=== PATIENT | female | born 2000 | race Caucasian/White ===

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

== ENCOUNTER → 2021-03-12 | Outpatient (REF) ==
[~2021-03-12] MED LIST changes: -AMIT25TA PO; +AMIT25TA17 PO; -RIZA5TAB; +RIZA5TAB2
== END ==
LOC: M EMP 12:41
PROVIDERS: ATTEND Family Medicine
DX: Z11.52 Encounter for screening for COVID-19 (principal)

== ENCOUNTER → 2021-03-16 | Outpatient (REF) | LOC: M LABSMTC 11:23 | PROVIDERS: ATTEND Pediatrics | DX: Z20.822 Contact with and (suspected) exposure to COVID-19 (principal) ==

== ENCOUNTER → 2021-04-13 | Outpatient (REF) ==
[2021-04-13 15:53] LABS: RSV AMPLIFICATION NEGATIVE (NEGATIVE)
== END ==
LOC: M EMP 14:01
PROVIDERS: ATTEND Family Medicine
DX: Z20.822 Contact with and (suspected) exposure to COVID-19 (principal)

== ENCOUNTER → 2021-04-14 | Outpatient (CLI) | payer OTHER ==
[2021-04-14 14:12] LABS: BASO # 0.1 10^3/uL (0.0-0.2); EOS # 0.2 10^3/uL (0.0-0.5); EOS % 3.6 % (0.0-3.0); HEMATOCRIT 40.5 % (36.0-47.0); HEMOGLOBIN 12.8 g/dl (12.0-15.5); LYMPH # 1.7 10^3/uL (1.5-5.0); LYMPH % 29.3 % (24.0-44.0); MEAN CORPUSCULAR HEMOGLOBIN 28.8 pg (27.0-33.0); MEAN CORPUSCULAR HGB CONC 31.6 g/dl (32.0-36.5); MEAN CORPUSCULAR VOLUME 91.2 fl (80.0-96.0); MONO # 0.4 10^3/uL (0.0-0.8); MONO % 6.5 % (2.0-8.0); NEUTROPHILS # 3.4 10^3/uL (1.5-8.5); NEUTROPHILS % 59.1 % (36.0-66.0); PLATELET COUNT, AUTOMATED 295 10^3/uL (150-450); RED BLOOD COUNT 4.44 10^6/uL (4.00-5.40); WHITE BLOOD COUNT 5.8 10^3/uL (4.0-10.0)
[2021-04-14 14:53] LABS: ALT/SGPT 21 U/L (12-78); BILIRUBIN,TOTAL 0.2 MG/DL (0.2-1.0); BLOOD UREA NITROGEN 9 MG/DL (7-18); CALCIUM LEVEL 8.9 MG/DL (8.5-10.1); CARBON DIOXIDE LEVEL 25 MEQ/L (21-32); CHLORIDE LEVEL 107 MEQ/L (98-107); CHOLESTEROL LEVEL 238 MG/DL (<200); CHOLESTEROL RISK RATIO 5.534 (<5); CREATININE FOR GFR 0.73 MG/DL (0.55-1.30); FREE T3 3.1 PG/ML (2.9-4.5); FREE T4 1.06 NG/DL (0.78-1.33); GLUCOSE, FASTING 89 MG/DL (70-100); HDL CHOLESTEROL 43 MG/DL (>40); LDL CHOLESTEROL 180 MG/DL (<100); NON-HDL-C 195 MG/DL; POTASSIUM SERUM 3.9 MEQ/L (3.5-5.1); SODIUM LEVEL 138 MEQ/L (136-145); THYROID PEROXIDASE ANTIBODY 515.9 U/ML (<60.0); TOTAL 25(OH) VITAMIN D 26.6 NG/ML (30.0-100.0); TOTAL PROTEIN 7.6 GM/DL (6.4-8.2); TRIGLYCERIDES LEVEL 75 MG/DL (<150)
[2021-04-14 15:22] LABS: HEMOGLOBIN A1c 5.3 %
== END ==
LOC: M LAB 13:21
PROVIDERS: ATTEND Nurse Practitioner Family
DX: Z00.01 Encounter for general adult medical examination with abnormal findings (principal)

== ENCOUNTER → 2021-04-22 | Outpatient (REF) ==
[2021-04-22 12:28] LABS: RSV AMPLIFICATION NEGATIVE (NEGATIVE)
== END ==
LOC: M EMP 08:05
PROVIDERS: ATTEND Family Medicine
DX: Z20.822 Contact with and (suspected) exposure to COVID-19 (principal)

== ENCOUNTER → 2022-01-04 | Outpatient (CLI) | payer OTHER ==
[~2022-01-04] MED LIST changes: -CLAR5TAB PO; +DESL5TAB28 PO
== END ==
LOC: M RAD 08:33
PROVIDERS: ATTEND Nurse Practitioner Family
DX: R10.11 Right upper quadrant pain (principal); R19.7 Diarrhea, unspecified
CPT/HCPCS: 78226; A9537

== ENCOUNTER → 2023-09-16 | Outpatient (REF) | payer OTHER, MEDICAID ==
[~2023-09-16] MED LIST changes: -AMIT25TA17 PO; +AMIT25TA19 PO; +MONT-5 PO; -SING10TA32 PO
[2023-09-16 18:01] LABS: APPEARANCE, URINE HAZY (CLEAR); BACTERIA, URINE AUTO NEGATIVE (NEGATIVE); BILIRUBIN, URINE AUTO NEGATIVE (NEGATIVE); BLOOD, URINE BLOOD NEGATIVE (NEGATIVE); COLOR, URINE YELLOW (YELLOW); GLUCOSE, URINE (UA) AUTO NEGATIVE (NEGATIVE); KETONE, URINE AUTO NEGATIVE (NEGATIVE); LEUKOCYTE ESTERASE, URINE AUTO NEGATIVE (NEGATIVE); MUCUS, URINE SMALL (NEGATIVE); NITRITE, URINE AUTO NEGATIVE (NEGATIVE); PROTEIN, URINE AUTO NEGATIVE (NEGATIVE); RBC, URINE AUTO 1 /HPF (0-3); SPECIFIC GRAVITY URINE AUTO 1.015 (1.002-1.035); SQUAMOUS EPITHELIAL CELL UR AU 5 /HPF (0-6); UROBILINOGEN, URINE AUTO 0.2 mg/dL (0.0-2.0); WBC, URINE AUTO 2 /HPF (0-3)
== END ==
LOC: M LAB REF 16:24
PROVIDERS: ATTEND Physician Assistant Medical
DX: N39.0 Urinary tract infection, site not specified (principal)

== ENCOUNTER 2024-04-21 23:27 | Emergency (ER) | payer OTHER ==
[~2024-04-21] VITALS: Ht 154.9 cm; Wt 68.9 kg
[~2024-04-21 23:27] MED LIST changes: -AUGM0.05; +AUGM0.0511
[2024-04-22] MEDS: ACETAMINOPHEN 500 MG TAB PO ONE (01:14)
[2024-04-22 01:43] LABS: BASO # 0.1 10^3/uL (0.0-0.2); BASO % 1.4 % (0.0-1.0); EOS # 0.3 10^3/uL (0.0-0.5); HEMATOCRIT 35.6 % (36.0-47.0); HEMOGLOBIN 11.8 g/dl (12.0-15.5); LYMPH # 1.7 10^3/uL (1.5-5.0); LYMPH % 30.2 % (24.0-44.0); MEAN CORPUSCULAR HEMOGLOBIN 28.6 pg (27.0-33.0); MEAN CORPUSCULAR HGB CONC 33.1 g/dl (32.0-36.5); MEAN CORPUSCULAR VOLUME 86.2 fl (80.0-96.0); MONO # 0.4 10^3/uL (0.0-0.8); MONO % 6.4 % (2.0-8.0); NEUTROPHILS # 3.2 10^3/uL (1.5-8.5); NEUTROPHILS % 55.8 % (36.0-66.0); PLATELET COUNT, AUTOMATED 327 10^3/uL (150-450); RED BLOOD COUNT 4.13 10^6/uL (4.00-5.40); WHITE BLOOD COUNT 5.7 10^3/uL (4.0-10.0)
[2024-04-22] MEDS ORDERED: ISOVUE-370 76% 100ML VIAL As Ordered ONE (01:47)
[2024-04-22] MEDS ORDERED: ERYT5OIN25 OS (03:18)
[2024-04-22] MEDS: ERYTHROMYCIN OPHTH OINT OS ONE (03:20)
[2024-04-22 03:23] VITALS: BP 137/74; TEMP 98.2; O2SAT 99
== END 2024-04-22 03:37 | disposition home or self-care (01) ==
LOC: M ED 23:27
DX: H10.32 Unspecified acute conjunctivitis, left eye (principal); J45.909 Unspecified asthma, uncomplicated; K58.9 Irritable bowel syndrome, unspecified; N13.70 Vesicoureteral-reflux, unspecified; Z79.3 Long term (current) use of hormonal contraceptives; Z79.899 Other long term (current) drug therapy; Z88.8 Allergy status to other drugs, medicaments and biological substances; Z91.011 Allergy to milk products; Z91.040 Latex allergy status
CPT/HCPCS: 36415; 70481; 80047; 85025; 99284; Q9967

== ENCOUNTER 2025-05-23 17:46 | Emergency (ER) | payer OTHER ==
[~2025-05-23] VITALS: Ht 154.9 cm; Wt 89.9 kg
[~2025-05-23 17:46] MED LIST changes: -DESL5TAB28 PO; +DESL5TAB30 PO; +ERYT5OIN25 OS; -PROC5TAB57 PO; +PROC5TAB81 PO
[2025-05-23 17:50] VITALS: BP 172/126; TEMP 97.5; O2SAT 100
[2025-05-23] MEDS ORDERED: ASPI81CH33 PO (18:34)
[2025-05-23] MEDS ORDERED: PRENTAB9 PO (18:34)
[2025-05-23] MEDS ORDERED: DULO1CAP4 PO (18:34)
[2025-05-23] MEDS ORDERED: OMEP10CASR PO (18:34)
[2025-05-23] MEDS ORDERED: LABE100T91 PO (22:40)
== END 2025-05-23 18:11 | disposition admitted as inpatient to this hospital (09) ==
LOC: M ED 17:46
DX: Z53.21 Procedure and treatment not carried out due to patient leaving prior to being seen by health care provider (principal)

== ENCOUNTER 2025-05-23 18:01 | Outpatient (CLI) | payer OTHER ==
[~2025-05-23] VITALS: Ht 154.9 cm; Wt 90.4 kg
[2025-05-23] VITALS (11 sets, daily range): BP systolic 127–174; BP diastolic 79–115
[2025-05-23] MEDS ORDERED: OMEP10CASR PO (18:34)
[2025-05-23] MEDS ORDERED: PRENTAB9 PO (18:34)
[2025-05-23] MEDS ORDERED: ASPI81CH33 PO (18:34)
[2025-05-23] MEDS ORDERED: DULO1CAP4 PO (18:34)
[2025-05-23] MEDS ORDERED: HOME MED LIST COMPLETE! XX SCH (18:35)
[2025-05-23 19:05] LABS: PLATELET COUNT, AUTOMATED 236 10^3/uL (150-450)
[2025-05-23 19:39] LABS: LDH LACTATE DEHYDROGENASE 251 U/L (120-246)
[2025-05-23 19:41] LABS: ALT/SGPT 17 U/L (7.0-40); AST/SGOT 31 U/L (<34); CALCIUM LEVEL 8.5 MG/DL (8.5-10.1); CARBON DIOXIDE LEVEL 24 MMOL/L (20-31); CHLORIDE LEVEL 105 MMOL/L (98-107); CREATININE FOR GFR 0.60 MG/DL (0.55-1.30); GLOMERULAR FILTRATION RATE > 90.0 (>60); POTASSIUM SERUM 3.8 MMOL/L (3.5-5.1); SODIUM LEVEL 137 MMOL/L (136-145)
[2025-05-23] MEDS: LABETALOL 100 MG/20 ML VIAL IV STA (19:58)
[2025-05-23 20:11] LABS: TOTAL PROTEIN,RANDOM URINE 12.6 MG/DL (0.0-14.0)
[2025-05-23] MEDS: LABETALOL 100 MG TAB PO ONE (20:56)
[2025-05-23] MEDS ORDERED: LABE100T91 PO (22:40)
== END 2025-05-23 22:23 | disposition home or self-care (01) ==
LOC: M LDO 18:01
PROVIDERS: ATTEND Obstetrics & Gynecology
DX: O16.3 Unspecified maternal hypertension, third trimester (principal); O99.513 Diseases of the respiratory system complicating pregnancy, third trimester; O99.343 Other mental disorders complicating pregnancy, third trimester; O26.833 Pregnancy related renal disease, third trimester; J45.909 Unspecified asthma, uncomplicated; F31.9 Bipolar disorder, unspecified; F41.8 Other specified anxiety disorders; Z3A.37 37 weeks gestation of pregnancy
CPT/HCPCS: 59025; 80053; 82570; 83615; 84156; 84550; 85027; G0463; J1920

== ENCOUNTER 2025-06-03 18:43 | Inpatient (IN) | payer OTHER ==
[2025-06-03] VITALS (12 sets, daily range): BP systolic 128–174; BP diastolic 76–115
[~2025-06-03] VITALS: Ht 154.9 cm; Wt 90.9 kg
[~2025-06-03 18:43] MED LIST changes: +ASPI81CH33 PO; +DULO1CAP4 PO; +LABE100T91 PO; +OMEP10CASR PO; +PRENTAB9 PO
[2025-06-03] MEDS ORDERED: HOME MED LIST COMPLETE! XX SCH (19:00)
[2025-06-03] MEDS ORDERED: LIDOCAINE 1% MDV 20 ML VIAL INFIL PRN (19:45)
[2025-06-03] MEDS ORDERED: OXYTOCIN INJ 10UNITS/ML 1ML VIAL IM PRN (19:45)
[2025-06-03] MEDS ORDERED: TRANEXAMIC ACID INJection 1,000 MG in NS 100 ML IV PRN (19:45)
[2025-06-03] MEDS ORDERED: OXYTOCIN DRIP 30 UNITS in IV 1 EA IV PRN (19:45)
[2025-06-03 19:57] LABS: TOTAL PROTEIN,RANDOM URINE 19.4 MG/DL (0.0-14.0)
[2025-06-03] MEDS: NIFEdipine 10 MG CAP PO STA (19:58)
[2025-06-03 20:09] LABS: PLATELET COUNT, AUTOMATED 239 10^3/uL (150-450)
[2025-06-03] MEDS: miSOPROStol 50 MCG 1/2 TABLET PO SCH (20:25)
[2025-06-03] MEDS: LABETALOL 200 MG TAB PO SCH (20:25)
[2025-06-03 20:40] LABS: LDH LACTATE DEHYDROGENASE 258 U/L (120-246)
[2025-06-03 20:41] LABS: ALT/SGPT 20 U/L (7.0-40); AST/SGOT 40 U/L (<34); CREATININE FOR GFR 0.69 MG/DL (0.55-1.30); GLOMERULAR FILTRATION RATE > 90.0 (>60)
[2025-06-03] MEDS ORDERED: [UNRECOGNIZED DRUG - CODE] PO (21:41)
[2025-06-03] MEDS ORDERED: LABE20TAB PO (21:41)
[2025-06-03] MEDS: GABAPENTIN 300 MG CAP PO SCH (22:22)
[2025-06-03] MEDS: OMEPRAZOLE 20MG CAP PO SCH (22:22)
[2025-06-03] MEDS: AMITRIPTYLINE 25 MG TABLET PO SCH (22:22)
[2025-06-03] MEDS: CETIRIZINE 10 MG TAB PO SCH (22:22)
[2025-06-04] VITALS (39 sets, daily range): BP systolic 110–176; BP diastolic 58–122
[2025-06-04] MEDS: FIORICET TAB PO PRN (11:24)
[2025-06-04] MEDS ORDERED: NALOXONE INJ 0.4 MG/1 ML VIAL IV PRN (14:05)
[2025-06-04] MEDS ORDERED: LR 500 ML IV PRN (14:05)
[2025-06-04] MEDS ORDERED: EPIDURAL/PCA KEYS XX PRN (14:05)
[2025-06-04 14:26] LABS: PLATELET COUNT, AUTOMATED 221 10^3/uL (150-450)
[2025-06-04] MEDS: FENTANYL/ROPIVACAINE/NACL BAG 100 ML EPIDURAL SCH (15:17)
[2025-06-04] MEDS: LR 1,000 ML IV SCH (16:04)
[2025-06-04] MEDS: LR 1,000 ML IV ONE (16:04)
[2025-06-04] MEDS ORDERED: LR 1,000 ML IV SCH (20:00)
[2025-06-04] MEDS: OXYTOCIN DRIP 30 UNITS in IV 1 EA IV SCH (20:15)
[2025-06-05] VITALS (19 sets, daily range): BP systolic 120–177; BP diastolic 64–97; O2SAT 96–98
[2025-06-05] MEDS: diphenhydrAMINE 50 MG/ML VIAL IV ONE (01:24)
[2025-06-05] MEDS: ACETAMINOPHEN 500 MG TAB PO ONE (01:24)
[2025-06-05] MEDS: BICITRA 30 ML SOLN UDC PO ONE (04:02)
[2025-06-05] MEDS: AZITHROMYCIN INJ 500 MG, VIAL MATE ADAPTER 1 EACH in NS 250 ML IV ONE (04:02)
[2025-06-05] MEDS: ceFAZolin SODIUM 2 GM in DEXTROSE 5% (D5W) ADV/MINI-BAG 50 ML IV ONE (04:03)
[2025-06-05] MEDS ORDERED: LIDOCAINE 2% W/EPINEPHrine 20 ML VIAL **PRES FREE As Ordered ONE (04:05)
[2025-06-05 04:24] LABS: HIV 1&2 SCREEN NEGATIVE (NEGATIVE)
[2025-06-05 04:32] LABS: HEPATITIS C VIRUS ABY INDEX 0.03 INDEX (<0.8)
[2025-06-05] MEDS ORDERED: KETOROLAC 30 MG/ML 1 ML VIAL As Ordered ONE (04:40)
[2025-06-05] MEDS ORDERED: MORPHINE PRES-FREE INJ 10 MG/10 ML VIAL As Ordered ONE (04:40)
[2025-06-05] MEDS ORDERED: ONDANSETRON 4MG/2ML VIAL As Ordered ONE (04:40)
[2025-06-05] MEDS ORDERED: MIDAZOLAM INJ 2 MG/2 ML VIAL As Ordered ONE (04:45)
[2025-06-05] MEDS ORDERED: TRANEXAMIC ACID 100 MG/ML 10ML VIAL As Ordered ONE (04:57)
[2025-06-05 05:08] LABS: CORD GAS ABE V -5.8; CORD GAS HCO3 V 21.3 MMOL/L; CORD GAS O2 SAT V 56.2 %; CORD GAS PCO2 V 47.2 mmHg; CORD GAS PH V 7.273 UNITS; CORD GAS PO2 V 25.6 mmHg; CORD GAS SBC V 18.8 MMOL/L; CORD GAS TCO2 V 22.8 MMOL/L
[2025-06-05 05:11] LABS: CORD GAS ABE A -5.7; CORD GAS HCO3 A 22.0 MMOL/L; CORD GAS O2 SAT A 42.1 %; CORD GAS PCO2 A 50.7 mmHg; CORD GAS PH A 7.255 UNITS; CORD GAS PO2 A 18.0 mmHg; CORD GAS SBC A 18.4 MMOL/L; CORD GAS TCO2 A 23.5 MMOL/L
[2025-06-05] MEDS ORDERED: PERCOCET 5MG/325MG TAB PO PRN ×2 (05:25)
[2025-06-05] MEDS ORDERED: RHOGAM 300MCG (1500IU) INJ IM SCH (05:25)
[2025-06-05] MEDS ORDERED: IBUPROFEN 800 MG TAB PO PRN (05:25)
[2025-06-05] MEDS ORDERED: IBUPROFEN 600 MG TAB PO PRN (05:25)
[2025-06-05] MEDS ORDERED: SIMETHICONE 80MG CHEW TAB PO PRN (05:25)
[2025-06-05] MEDS ORDERED: MORPHINE 2 MG/ML 1 ML VIAL IV PRN (05:25)
[2025-06-05] MEDS ORDERED: ONDANSETRON 4MG/2ML VIAL IV PRN (05:45)
[2025-06-05] MEDS ORDERED: PERCOCET PO (06:08)
[2025-06-05] MEDS ORDERED: IBUP80TA PO (06:08)
[2025-06-05] MEDS ORDERED: COLA100C5 PO (06:08)
[2025-06-05] MEDS: DOCUSATE SODIUM 100 MG CAPSULE PO SCH (09:00)
[2025-06-05 09:02] LABS: LDH LACTATE DEHYDROGENASE 203.0 U/L (120-246)
[2025-06-05 09:03] LABS: ALT/SGPT 12.0 U/L (7.0-40); AST/SGOT 25.0 U/L (<34); CREATININE FOR GFR 0.94 MG/DL (0.55-1.30); GLOMERULAR FILTRATION RATE 86.9 (>60)
[2025-06-05 09:05] LABS: PLATELET COUNT, AUTOMATED 193 10^3/uL (150-450)
[2025-06-05] MEDS: PRENATAL VITAMINS CHEWABLE TABLET PO SCH (09:09)
[2025-06-05] MEDS: LR 1,000 ML IV SCH (09:10)
[2025-06-05] MEDS: KETOROLAC 30 MG/ML 1 ML VIAL IV SCH (10:46)
[2025-06-05] MEDS: ONDANSETRON 4MG/2ML VIAL IV PRN (11:48)
[2025-06-05] MEDS: LR 1,000 ML IV ONE (14:54)
[2025-06-06] VITALS (10 sets, daily range): BP systolic 118–149; BP diastolic 61–79; TEMP 97.9–98.7; O2SAT 96–98
[2025-06-06] MEDS: IBUPROFEN 800 MG TAB PO SCH (06:28)
[2025-06-06 07:57] LABS: PLATELET COUNT, AUTOMATED 187 10^3/uL (150-450)
[2025-06-06] MEDS: diphenhydrAMINE 50 MG/ML VIAL IV PRN (10:49)
[2025-06-06] MEDS: ACETAMINOPHEN 325 MG TAB PO ONE (10:49)
[2025-06-06 13:50] LABS: TOTAL PROTEIN,RANDOM URINE 24.4 MG/DL (0.0-14.0)
[2025-06-06 16:31] LABS: BASO # 0.0 10^3/uL (0.0-0.2); BASO % 0.2 % (0.0-1.0); EOS # 0.1 10^3/uL (0.0-0.5); EOS % 0.9 % (0.0-3.0); LYMPH # 1.7 10^3/uL (1.5-5.0); LYMPH % 11.9 % (24.0-44.0); MONO # 0.8 10^3/uL (0.0-0.8); MONO % 5.4 % (2.0-8.0); NEUTROPHILS # 11.1 10^3/uL (1.5-8.5); NEUTROPHILS % 78.7 % (36.0-66.0); PLATELET COUNT, AUTOMATED 191 10^3/uL (150-450)
[2025-06-06 16:56] LABS: ALT/SGPT 11.0 U/L (7.0-40); AST/SGOT 26.0 U/L (<34); CALCIUM LEVEL 7.5 MG/DL (8.5-10.1); CARBON DIOXIDE LEVEL 24.0 MMOL/L (20-31); CHLORIDE LEVEL 108.0 MMOL/L (98-107); CREATININE FOR GFR 0.94 MG/DL (0.55-1.30); GLOMERULAR FILTRATION RATE 86.9 (>60); POTASSIUM SERUM 4.6 MMOL/L (3.5-5.1); SODIUM LEVEL 141.0 MMOL/L (136-145)
[2025-06-07 02:00] VITALS: BP 138/71; O2SAT 97
[2025-06-07 06:00] VITALS: BP 134/87; O2SAT 97
[2025-06-07] MEDS: MEASLES,MUMPS,RUBELLA VACCINE INJ (MMR-II) SC.IMMUN ONE (09:00)
[2025-06-07 09:19] VITALS: BP 162/89
[2025-06-07] MEDS: ACETAMINOPHEN 500 MG TAB PO PRN (14:45)
== END 2025-06-07 15:00 | disposition home or self-care (01) | DRG 540 ==
LOC: M LDO 18:43 → M LDI 19:33 → M OBS 06-05 06:26
PROVIDERS: ADMIT Advanced Practice Midwife; ATTEND Obstetrics & Gynecology
PROC: 3E0P7GC Introduction of Other Therapeutic Substance into Female Reproductive, Via Natural or Artificial Opening (ICD-10-PCS; 2025-06-03)
PROC: 10D00Z1 Extraction of Products of Conception, Low, Open Approach (ICD-10-PCS; principal; 2025-06-05 03:54)
PROC: 30233N1 Transfusion of Nonautologous Red Blood Cells into Peripheral Vein, Percutaneous Approach (ICD-10-PCS; 2025-06-06)
DX: O14.14 Severe pre-eclampsia complicating childbirth (principal); D62 Acute posthemorrhagic anemia; O64.0XX0 Obstructed labor due to incomplete rotation of fetal head, not applicable or unspecified; Z3A.38 38 weeks gestation of pregnancy; O99.02 Anemia complicating childbirth; Z37.0 Single live birth; Z79.82 Long term (current) use of aspirin; Z79.899 Other long term (current) drug therapy; Z88.8 Allergy status to other drugs, medicaments and biological substances; Z91.0110 Allergy to milk products, unspecified; Z91.040 Latex allergy status